=== PATIENT | male | born 1975 | race Caucasian/White ===

== ENCOUNTER 2025-08-08 08:59 | Observation (INO) ==
--- NOTE | 2025-08-08 09:07 | ED.PDOC ---
General [facility] ED Provider: Dr. ESTEPHANIE JOHNSON MD Chief Complaint: Extremity Pain/Injury Stated Complaint: Patient is a 50-year-old male that reported to the emergency department for left lower extremity pain. Patient stated that he was debriding some of the cellulitis on his leg with a clean bandage at home approximately 2 hours prior to coming to the emergency department when he started to get a 10 out of 10 pain in his left lower extremity. Patient stated that he has a long history of cellulitis of the left lower extremity. Patient stated that he was being seen today at wound care but had to come to the emergency department because he had left lower extremity pain. Patient currently rates his pain at 10 out of 10. Patient stated that he is not had any fever, lymphadenopathy, or any other acute symptoms. Patient stated that he has pain whether or not he is moving or touching the lower extremity. Patient stated that he is not taking anything for his pain. Patient denied any recent injuries to his lower extremity. Patient's vital signs are currently stable. Patient's GCS is 15. Time Seen by Provider: 08/08/25 09:01 Mode of Arrival: Wheelchair Information Source: Patient Exam Limitations: No limitations Primary Care Provider: NAN VALADEZ Nursing and Triage Documentation Reviewed and Agree: Yes Opioid Naive vs. Tolerant What is Opioid Naive?: *Opioid Naive implies the patient is not already taking opioids or not chronically receiving opioids on a daily basis. *PRN dosing is not "usually" associated with tolerance. *Patients are at higher risk of over-sedation and aspiration. What is Opioid Tolerant?: *Opioid Tolerance implies less than the expected response to an opioid. *Acquired tolerance is defined by the patient taking 60mg of oral morphine daily (or equianalgesic dose of another opioid) for 1 week or more. *Often associated with chronic pain. *May take more than usual dose to achieve desired pain control. Review of Systems Review Of Systems Constitutional: Reports No symptoms Musculoskeletal: Reports Other (Left leg pain.) All Other Systems: Reviewed and Negative [facility] Medical History Kidney stone N20.0 - Calculus of kidney (ICD-10) Stomach problems K31.9 - Disease of stomach and duodenum, unspecified (ICD-10) Allergies T78.40XA - Allergy, unspecified, initial encounter (ICD-10) Acid reflux K21.9 - Gastro-esophageal reflux disease without esophagitis (ICD-10) Family History Mother Allergies FATHER Heart problem MATERNAL GRANDMOTHER Cancer MATERNAL GRANDFATHER Stroke Social History Smoking and tobacco status: Current every day smoker (pt smokes cigarettes as well as marijuana) Tobacco type: cigarettes Tobacco: How many years used: 26 Quit status: considering quitting Second hand smoke exposure: Yes Alcohol intake: current Alcohol intake frequency: holidays/special occasions only Substance use type: marijuana Rosmery/mandaeism: zoroastrian Special rosmery needs: No Agree to transfusion: Yes Adopted: No Caregiver/support person: Yes Household members: family Housing: house Lives independently: Yes Number of children: 0 Highest education level completed: GED or equivalent Financial difficulty paying for basics: not applicable service: No Current occupational status: unemployed Current occupational exposures/hazards: No Pets and animals: Yes Leisure activites: reading History of recent travel: No Do you think of yourself as: straight/heterosexual Current gender identity: male Seatbelt use: always Helmet use: No Drives intoxicated or rides with intoxicated deliver driver: No Water heater temperature set < 120 degrees: Yes Working smoke detector in home: No (Notified patient to get smoke detector) Fire extinguisher in home: Yes Carbon monoxide detector in home: No Firearms in home: No Physical Exam Physical Exam Appearance: Reports Well-nourished Ill-appearing: None Pain Distress: Moderate Eyes: Reports SUMI and EOMI ENT: Reports Nose normal and Oropharynx normal Neck: Supple Respiratory: Reports Airway patent, Breath sounds clear, Breath sounds equal and Respirations nonlabored Cardiovascular: Reports RRR, Pulses normal, No rub and No murmur GI/: Reports Soft, Nontender and Bowel sounds normal Musculoskeletal: Reports Normal strength, ROM intact and Calf tenderness (Left calf tenderness with warmth and swelling. Homans' sign positive in the left lower extremity.) Skin: Reports Warm, Dry and Other (Patient has stasis dermatitis bilaterally in the lower extremities below the knees. On the left side patient has an area of cellulitis in the left calf. There is no discharge from the cellulitis noted on physical exam.) Neurological: Reports Sensation intact, Motor intact, Alert and Oriented Psychiatric: Reports Affect appropriate and Mood appropriate Physician Progress Note Physician Progress Note: Patient is a 50-year-old male that reported to the emergency department for left lower extremity pain. Patient stated that he was debriding some of the cellulitis on his leg with a clean bandage at home approximately 2 hours prior to coming to the emergency department when he started to get a 10 out of 10 pain in his left lower extremity. Patient stated that he has a long history of cellulitis of the left lower extremity. Patient stated that he was being seen today at wound care but had to come to the emergency department because he had left lower extremity pain. Patient currently rates his pain at 10 out of 10. Patient stated that he is not had any fever, lymphadenopathy, or any other acute symptoms. Patient stated that he has pain whether or not he is moving or touching the lower extremity. Patient stated that he is not taking anything for his pain. Patient denied any recent injuries to his lower extremity. Patient's vital signs are currently stable. Patient's GCS is 15. - Will order CT of the left lower extremity with IV contrast to rule out any deep infection in the left lower extremity. - Due to patient's positive Homans' sign and Wells score of 3 will order ultrasound venous Doppler of the left lower extremity to rule out DVT. - Will give the patient IV morphine 4 mg once for pain and give patient IV ondansetron 4 mg once empirically for nausea due to morphine. -Will give the patient IV vancomycin 1 g for cellulitis of the left lower extremity. - Will order baseline labs and urinalysis. - Will give IV normal saline 125 mL an hour for gentle hydration. - Venous Doppler ultrasound of the left lower extremity shows no DVT. Radiology read the ultrasound out as- No deep venous thrombosis in the left lower extremity. No superficial thrombophlebitis in the left lower extremity. Subcutaneous edema. Repeat evaluation in 5-7 days if edema persists. - CT of the left lower extremity showed Nonspecific diffuse subcutaneous edema throughout the left lower leg with differential including cellulitis, venous stasis or lymphedema. No soft tissue abscess or soft tissue gas. No acute osseous abnormality. - Will contact the hospitalist for admission for cellulitis and the need for IV antibiotics. [id number]) spoke to yesika Willson here at [facility] about admission for this patient. She has agreed to admit this patient for observation for cellulitis and the need for IV antibiotics. Patient's vital signs are stable at time of admission for observation. Discussed radiograph findings and lab findings as well with the hospitalist. Course Course 08/08/25 09:28 08/08/25 09:28 Orders, Labs, Meds: Lab Review 08/08/25 08/08/25 09:28 10:51 WBC 10.51 H RBC 3.25 L Hgb 11.0 L Hct 34.0 L MCV 104.6 H MCH 33.8 H MCHC 32.4 RDW Coeff of Andrey 14.6 Plt Count 276 Immature Gran % (Auto) 0.4 Neut % (Auto) 79.4 H Lymph % (Auto) 10.3 [place] % (Auto) 8.6 Eos % (Auto) 1.1 Baso % (Auto) 0.2 Neut # (Auto) 8.4 H Lymph # (Auto) 1.1 [place] # (Auto) 0.9 Eos # (Auto) 0.1 Baso # (Auto) 0.0 Immature Gran # (Auto) 0.0 Sodium 133.7 L Potassium 4.32 Chloride 100.6 Carbon Dioxide 29.4 Anion Gap 8.02 BUN 18.5 Creatinine 0.94 Estimated GFR (MDRD) 85.00 BUN/Creatinine Ratio 19.68 Glucose 132.2 H Lactic Acid 2.24 H Calcium 9.39 Total Bilirubin 0.47 AST 77.2 H ALT 24.0 Alkaline Phosphatase 86.9 Total Protein 8.25 H Albumin 3.97 Globulin 4.28 Albumin/Globulin Ratio 0.92 Urine Color Yellow Urine Clarity Clear Urine pH 7.5 Ur Specific [place] 1.015 Urine Protein Negative Urine Glucose (UA) Negative Urine Ketones Negative Urine Blood Trace-intact H Urine Nitrite Negative Urine Bilirubin Negative Urine Urobilinogen 0.2 Ur Leukocyte Esterase Negative Ur Squamous Epith Cells Pending Orders Category Date Time Status NPO REMINDER: IMAGING ONCE CARE 08/08/25 09:04 Completed BLOOD CULTURE (ED ONLY) Stat LAB 08/08/25 10:04 Received CBC W/ AUTO DIFF Stat LAB 08/08/25 09:28 Completed CMP [COMPREHENSIVE METABOLIC PANEL] Stat LAB 08/08/25 09:28 Completed LACTIC ACID Stat LAB 08/08/25 09:28 Completed URINALYSIS C & S IF INDICATED Stat LAB 08/08/25 10:51 Results Morphine Sulfate [Morphine 4 mg/ml Syringe] Meds 08/08/25 09:17 Discontinued 4 mg IVP ONCE ONE Ondansetron HCl/Pf [Zofran Sdv] Meds 08/08/25 09:18 Discontinued 4 mg IVP ONCE STA Sodium Chloride 0.9% [Sodium Chloride] 1,000 ml Meds 08/08/25 09:58 Active IV 125 mls/hr Vancomycin/Water For Inj (Peg) [Vancomycin 1 Gram/200 Meds 08/08/25 09:28 Discontinued ml Premix] 1 gm in [address] LOWER EXTRE W/CONT, LEFT Stat RADS 08/08/25 09:04 Completed U/S VENOUS SCAN LT LEG Stat RADS 08/08/25 09:07 Completed Medications Generic Name Dose Route Start Last Admin Trade Name Freq PRN Reason Stop Dose Admin Sodium Chloride 1,000 mls @ 125 mls/hr 08/08/25 09:58 08/08/25 10:26 Sodium Chloride IV 08/08/25 17:57 125 mls/hr .Q8H ONE Administration Discontinued Medications Generic Name Dose Route Start Last Admin Trade Name Freq PRN Reason Stop Dose Admin VANCOMYCIN/WATER FOR INJ (PEG) 1 gm in 200 mls @ 200 mls/hr 08/08/25 09:28 08/08/25 10:26 Vancomycin 1 Gram/200 Ml Premix IV 08/08/25 10:27 200 mls/hr ONCE ONE Administration Morphine Sulfate 4 mg 08/08/25 09:17 08/08/25 09:27 Morphine Sulfate 4 Mg/Ml Syringe IVP 08/08/25 09:18 4 mg ONCE ONE Administration Ondansetron HCl 4 mg 08/08/25 09:18 08/08/25 09:27 Ondansetron Hcl/Pf 4 Mg/2 Ml Sdv IVP 08/08/25 09:19 4 mg ONCE STA Administration Vital Signs: Temp Pulse Resp BP Pulse Ox 08/08/25 09:11 98.7 F 133 H 22 H 155/87 H 100 Discharge Plan Discharge Patient Disposition: PLACED OBSERVATION Discharge Problem: Cellulitis of left leg, Acute bilateral venous stasis dermatitis, Acute pain of left lower extremity, Anemia of chronic disease Did you review [place] [employer] for ALL controlled substances?: Not Applicable ED Provider: ESTEPHANIE JOHNSON Condition: Stable
[2025-08-08] MEDS: ZOFRAN SDV IVP STA (09:27)
[2025-08-08] MEDS: MORPHINE 4 MG/ML SYRINGE IVP ONE (09:27)
[2025-08-08 09:32] LABS: IMMATURE GRANULOCYTE # (AUTO) 0.0 (0.0-1.0); IMMATURE GRANULOCYTE % (AUTO) 0.4 % (0.0-5.0); RDW COEFFICIENT OF VARIATION 14.6 % (11.6-14.8)
[2025-08-08 09:44] LABS: CREATININE 0.94 mg/dL (0.60-1.10)
--- NOTE | 2025-08-08 10:10 | US ---
EXAM: LEFT LOWER EXTREMITY DEEP VENOUS ULTRASOUND WITH DOPPLER IMAGING HISTORY: Rule out DVT. TECHNIQUE: Lopez-scale ultrasound with compression maneuvers and color and spectral Doppler ultrasound at rest and with augmentation of the veins was performed. Images were obtained and stored in a permanent archive. COMPARISON: None FINDINGS: LEFT LOWER EXTREMITY: Common Femoral Vein: Normal compression. Normal flow on color Doppler images. Normal response to augmentation. Deep Femoral Vein: Normal compression. Normal flow on color Doppler images. Normal response to augmentation. Superficial Femoral Vein: Normal compression. Normal flow on color Doppler images. Normal response to augmentation. Popliteal Vein: Normal compression. Normal flow on color Doppler images. Normal response to augmentation. Peroneal Vein: Normal compression. Normal flow on color Doppler images. Posterior Tibial Vein: Normal compression. Normal flow on color Doppler images. Anterior Tibial Vein: Normal compression. Normal flow on color Doppler images. Greater Saphenous Vein (Superficial): Normal compression Other: Subcutaneous edema. IMPRESSION: - No deep venous thrombosis in the left lower extremity. - No superficial thrombophlebitis in the left lower extremity. - Subcutaneous edema. Repeat evaluation in 5-7 days if edema persists.
[2025-08-08] MEDS: SODIUM CHLORIDE 1,000 ML IV ONE (10:26)
[2025-08-08] MEDS: VANCOMYCIN 1 GRAM/200 ML PREMIX 1 GM/200 ML BAG IV ONE ×2 (10:26→13:07)
[2025-08-08 11:01] LABS: GLUCOSE, URINE (UA) Negative (NEGATIVE); LEUKOCYTE ESTERASE ,URINE Negative (NEGATIVE); URINE, BLOOD Trace-intact (NEGATIVE)
[2025-08-08 11:02] LABS: SQUAMOUS EPITHELIAL CELL,UR NOT PRESENT (0-5)
--- NOTE | 2025-08-08 11:03 | CT ---
EXAM: CT LEFT TIBIA AND FIBULA WITH CONTRAST. HISTORY: Soft tissue infection suspected. Left lower leg pain. TECHNIQUE: Helical axial sections were obtained through the left tibia and fibula following the intravenous administration of contrast. Coronal and sagittal reformatted images were obtained from the axial source images. Images were reviewed on a high-resolution PACS workstation. DICOM images are jinny ilable. CT Dose Reduction Techniques Performed: Yes. COMPARISON: None. FINDINGS: Diffuse subcutaneous edema throughout the left lower leg. No rim enhancing fluid collection to suggest an abscess. No soft tissue gas or deep myofascial fluid. No acute fracture or dislocation. No cortical erosion or osseous destruction. No joint effusion at the knee or ankle. Mild degenerative changes. IMPRESSION: - Nonspecific diffuse subcutaneous edema throughout the left lower leg with differential including cellulitis, venous stasis or lymphedema. No soft tissue abscess or soft tissue gas. - No acute osseous abnormality. All CT scans are performed using dose optimization techniques as appropriate to the performed exam and include at least one of the following: Automated exposure control, adjustment of the mA and/or kV according to size, and the use of iterative reconstruction technique.
[2025-08-08 11:06] LABS: HYALINE CASTS, URINE 0-2 (NOT PRESENT); TRIPLE PHOSPHATE CRYSTAL,UR TRACE (NOT PRESENT)
--- NOTE | 2025-08-08 11:09 | PCM ---
Date of Service Date Seen by Provider: 08/08/25 Time Seen by Provider: 11:30 Admit Day/Time Admission Date: 08/08/25 Admission Time: 11:06 Reason for Admission Chief Complaint: ACUTE BILAT. VEIN. STASIS DERM., CELLULITIS LFT Hospital Provider Hospital Provider: Nathan Gasca PA-C, [facility] Primary Care Physician Primary Care Physician: ANN VALADEZ History of Present Illness History of Present Illness: Patient is a 50 year old male who presents to the ER with left lower ext pain. Rahat has been following wound care for his lower extremities and was there today. They brought him over due to his significant pain in LLE. Patient's venous US r/o DVT, ct of left lower ext negative for abscess but shows edema and possible cellulitis. Patient was recently prescribed clindamycin but has missed some doses. Wound cultures from about a year ago show MRSA. Patient is feeling better after some IV pain medication. He is sleepy. He was also given vanc IV. Will admit to [facility] for cellulitis of left lower ext. Patient states he had recent testing done at [facility] including an CARSON in last couple dyas, and that having the cuff down around his wound has made his pain worse since then. Case Discussed With Case Discussed With: Patient's case was discussed with the ER Physicians, Dr. Webber. [facility] Medical History Kidney stone N20.0 - Calculus of kidney (ICD-10) Stomach problems K31.9 - Disease of stomach and duodenum, unspecified (ICD-10) Allergies T78.40XA - Allergy, unspecified, initial encounter (ICD-10) Acid reflux K21.9 - Gastro-esophageal reflux disease without esophagitis (ICD-10) Family History Mother Allergies FATHER Heart problem MATERNAL GRANDMOTHER Cancer MATERNAL GRANDFATHER Stroke Social History Smoking and tobacco status: Current every day smoker (pt smokes cigarettes as well as marijuana) Tobacco type: cigarettes Tobacco: How many years used: 26 Quit status: considering quitting Second hand smoke exposure: Yes Alcohol intake: current Alcohol intake frequency: holidays/special occasions only Substance use type: marijuana Rosmery/baptist: scientologist Special rosmery needs: No Agree to transfusion: Yes Adopted: No Caregiver/support person: Yes Household members: family Housing: house Lives independently: Yes Number of children: 0 Highest education level completed: GED or equivalent Financial difficulty paying for basics: not applicable service: No Current occupational status: unemployed Current occupational exposures/hazards: No Pets and animals: Yes Leisure activites: reading History of recent travel: No Do you think of yourself as: straight/heterosexual Current gender identity: male Seatbelt use: always Helmet use: No Drives intoxicated or rides with intoxicated package delivery driver: No Water heater temperature set < 120 degrees: Yes Working smoke detector in home: No (Notified patient to get smoke detector) Fire extinguisher in home: Yes Carbon monoxide detector in home: No Firearms in home: No Allergies Allergies Allergy/AdvReac Type Severity Reaction Status Date / Time mold Allergy Mild headache, Verified 08/08/25 09:22 nasal congestion pollen extracts Allergy Mild headache, Verified 08/08/25 09:22 nasal congestion codeine AdvReac nausea Verified 08/08/25 09:22 Current Medications Home Medications Acetaminophen (Acetaminophen 325 Mg Tablet) 650 mg PO Q4H PRN PRN Reason: Mild Pain Last Admin: 08/08/25 13:12 Dose: 650 mg Aripiprazole (Aripiprazole 5 Mg Tablet) 10 mg PO DAILY [facility] Budesonide/Formoterol Fumarate (Budesonide/Formoterol Fumarate 80/4.5 Mcg Hfa.Aer.Ad) puff IH .nightly [facility] Enoxaparin Sodium (Enoxaparin Sodium 40 Mg/0.4 Ml Syr) 40 mg SUBCUT DAILY [facility] Sodium Chloride (Sodium Chloride) 1,000 mls @ 125 mls/hr IV .Q8H ONE Stop: 08/08/25 17:57 Last Admin: 08/08/25 10:26 Dose: 125 mls/hr VANCOMYCIN/WATER FOR INJ (PEG) (Vancomycin 1.5 Gram/300 Ml Premix) 1.5 gm in 300 mls @ 200 mls/hr IV Q12HR MIRYAM Stop: 08/11/25 20:59 Ibuprofen (Ibuprofen 400 Mg Tablet) 800 mg PO Q6H PRN PRN Reason: FEVER/PAIN Morphine Sulfate (Morphine Sulfate 2 Mg/Ml Syringe) 2 mg IVP Q6H PRN PRN Reason: MODERATE PAIN aripiprazole 10 mg tablet 10 mg PO DAILY 05/14/25 [History Confirmed 08/08/25] albuterol sulfate 90 mcg/actuation aerosol inhaler 2 puff inhalation Q6-8H PRN shortness of breath or wheezing 08/08/25 [History Confirmed 08/08/25] budesonide-formoterol HFA 80 mcg-4.5 mcg/actuation aerosol inhaler (Symbicort) 1 inh inhalation .nightly 08/08/25 [History Confirmed 08/08/25] clindamycin HCl 300 mg capsule 300 mg PO Q6HR 08/08/25 [History Confirmed 08/08/25] diclofenac sodium 75 mg tablet,delayed release 75 mg PO DAILY 08/08/25 [History Confirmed 08/08/25] loratadine 10 mg tablet (Allergy Relief (loratadine)) 10 mg PO DAILY PRN allergy symptoms 08/08/25 [History Confirmed 08/08/25] topiramate 50 mg tablet 50 mg PO DAILY PRN migraines 08/08/25 [History Confirmed 08/08/25] Opioid Naive vs. Tolerant Does Patient Take Opioids?: No Is Patient Opioid Naive?: Yes What is Opioid Naive?: *Opioid Naive implies the patient is not already taking opioids or not chronically receiving opioids on a daily basis. *PRN dosing is not "usually" associated with tolerance. *Patients are at higher risk of over-sedation and aspiration. Is Patient Opioid Tolerant?: No What is Opioid Tolerant?: *Opioid Tolerance implies less than the expected response to an opioid. *Acquired tolerance is defined by the patient taking 60mg of oral morphine daily (or equianalgesic dose of another opioid) for 1 week or more. *Often associated with chronic pain. *May take more than usual dose to achieve desired pain control. Review of Systems Constitutional: Denies Fever Head: Reports Normocephalic and Atraumatic Cardiovascular: Denies Chest pain Respiratory: Denies Shortness of air Musculoskeletal: Reports Other (+LLE pain ) Physical examination Most Recent Vital Signs: Most Recent Vital Signs Temperature 98.7 F 08/08/25 09:11 Temperature Source Tympanic 08/08/25 09:11 Pulse Rate 133 H 08/08/25 09:11 Respiratory Rate 22 H 10/16/25 09:11 Blood Pressure 155/87 H 08/08/25 09:11 O2 Sat by Pulse Oximetry 100 08/08/25 09:11 Height 6 ft 1 in 08/08/25 09:11 Weight 108 kg 08/08/25 09:11 Appearance: Positive No Apparent Distress and Other (+sedated from pain medication but wakes when spoken to, disheveled ) HEENT: Positive Normocephalic and Atraumatic Neck: Positive Supple and Midline Trachea Chest/Lungs: Positive Clear to Auscultation Bilaterally; Negative Rales, Rhonci or Wheezes Heart: Positive RRR GI/: Positive Soft, Nontender, Bowel Sounds Normal and No Distention Additional Findings: BLE - chronic skin changes consistent with venous stasis dermatitis. There is a large irregularly shaped ulceration of the left lateral lower ext that appears chronic, weeping, with some erythema Labs This Visit Labs This Visit: Labs This Visit 08/08/25 08/08/25 09:28 10:51 WBC 10.51 H RBC 3.25 L Hgb 11.0 L Hct 34.0 L MCV 104.6 H MCH 33.8 H MCHC 32.4 RDW Coeff of Andrey 14.6 Plt Count 276 Immature Gran % (Auto) 0.4 Neut % (Auto) 79.4 H Lymph % (Auto) 10.3 [place] % (Auto) 8.6 Eos % (Auto) 1.1 Baso % (Auto) 0.2 Neut # (Auto) 8.4 H Lymph # (Auto) 1.1 [place] # (Auto) 0.9 Eos # (Auto) 0.1 Baso # (Auto) 0.0 Immature Gran # (Auto) 0.0 Sodium 133.7 L Potassium 4.32 Chloride 100.6 Carbon Dioxide 29.4 Anion Gap 8.02 BUN 18.5 Creatinine 0.94 Estimated GFR (MDRD) 85.00 BUN/Creatinine Ratio 19.68 Glucose 132.2 H Lactic Acid 2.24 H Calcium 9.39 Total Bilirubin 0.47 AST 77.2 H ALT 24.0 Alkaline Phosphatase 86.9 Total Protein 8.25 H Albumin 3.97 Globulin 4.28 Albumin/Globulin Ratio 0.92 Urine Color Yellow Urine Clarity Clear Urine pH 7.5 Ur Specific [place] 1.015 Urine Protein Negative Urine Glucose (UA) Negative Urine Ketones Negative Urine Blood Trace-intact H Urine Nitrite Negative Urine Bilirubin Negative Urine Urobilinogen 0.2 Ur Leukocyte Esterase Negative Urine Microscopic RBC 2-5 Ur Squamous Epith Cells Not present Triple Phos Crystals Trace Hyaline Casts 0-2 Imaging Imaging: EXAM: CT LEFT TIBIA AND FIBULA WITH CONTRAST. HISTORY: Soft tissue infection suspected. Left lower leg pain. TECHNIQUE: Helical axial sections were obtained through the left tibia and fibula following the intravenous administration of contrast. Coronal and sagittal reformatted images were obtained from the axial source images. Images were reviewed on a high-resolution PACS workstation. DICOM images are available. CT Dose Reduction Techniques Performed: Yes. COMPARISON: None. FINDINGS: Diffuse subcutaneous edema throughout the left lower leg. No rim enhancing fluid collection to suggest an abscess. No soft tissue gas or deep myofascial fluid. No acute fracture or dislocation. No cortical erosion or osseous destruction. No joint effusion at the knee or ankle. Mild degenerative changes. IMPRESSION: - Nonspecific diffuse subcutaneous edema throughout the left lower leg with differential including cellulitis, venous stasis or lymphedema. No soft tissue abscess or soft tissue gas. - No acute osseous abnormality. EXAM: LEFT LOWER EXTREMITY DEEP VENOUS ULTRASOUND WITH DOPPLER IMAGING HISTORY: Rule out DVT. TECHNIQUE: Lopez-scale ultrasound with compression maneuvers and color and spectral Doppler ultrasound at rest and with augmentation of the veins was perf ormed. Images were obtained and stored in a permanent archive. COMPARISON: None FINDINGS: LEFT LOWER EXTREMITY: Common Femoral Vein: Normal compression. Normal flow on color Doppler images. Normal response to augmentation. Deep Femoral Vein: Normal compression. Normal flow on color Doppler images. Normal response to augmentation. Superficial Femoral Vein: Normal compression. Normal flow on color Doppler images. Normal response to augmentation. Popliteal Vein: Normal compression. Normal flow on color Doppler images. Normal response to augmentation. Peroneal Vein: Normal compression. Normal flow on color Doppler images. Posterior Tibial Vein: Normal compression. Normal flow on color Doppler images. Anterior Tibial Vein: Normal compression. Normal flow on color Doppler i mages. Greater Saphenous Vein (Superficial): Normal compression Other: Subcutaneous edema. IMPRESSION: - No deep venous thrombosis in the left lower extremity. - No superficial thrombophlebitis in the left lower extremity. - Subcutaneous edema. Repeat evaluation in 5-7 days if edema persists. Review Statement Review Statement: I have independently reviewed and interpreted the labs/EKGs/imaging that were ordered by the ER provider. I have reviewed all outside records that are available currently in our EMR including imaging/notes/labs from previous visits. Plan Plan: 1. Acute cellulitis of left lower extremity - failed outpatient antibiotics. Pt taking clindamycin. Will cover for vanc at this time. No discernable wound to culture as his entire left lateral lower ext is an ulceration but without purulent drainage. 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 2. Venous stasis dermatitis of BLE - Patient follows with vascular surgery at [facility], last seen in June. 3. Large ulceration of left lower ext - Seeing wound care here in [place], will try to get some records from them. Reviewing pictures from his vascular visit last month, his LLE actually appears improved as far as the ulceration goes. However during admission assessment, patient noted to be running a 102F fever. DVT Prophylaxis: Lovenox Time Spent: Greater than 80 minutes spent with patient, 50% of the time spent with this patient was devoted to counseling and coordination of care. Advanced Care Plannin minutes spent discussing advance care planning. Smoking Cessation: 3 minutes spent discussing smoking cessation. Admit to: Obs Discussed Plan of Care with Dr. Ana Younger. Medications Medication Orders: Medications Ordered Category Date Time Status Sodium Chloride 0.9% [Sodium Chloride] 1,000 ml Meds 08/08/25 09:58 Active IV 125 mls/hr
[2025-08-08] MEDS ORDERED: MORPHINE 2 MG/ML SYRINGE IVP PRN (12:01)
[2025-08-08 13:05] VITALS: BMI 31.5
[2025-08-08] MEDS: TYLENOL PO PRN (13:12)
[2025-08-08] MEDS: MOTRIN PO PRN (15:03)
[2025-08-08] MEDS: ABILIFY PO SCH (15:04)
[2025-08-08] MEDS: OMNIPAQUE 350 MG/ML 100ML IVP ONE (15:50)
[2025-08-08] MEDS: OMNIPAQUE 350 MG/ML IVP ONE (15:50)
[2025-08-08] MEDS: VANCOMYCIN 1.5 GRAM/300 ML PREMIX 1.5 GM/300 ML BAG IV SCH (21:02)
[2025-08-08] MEDS: SYMBICORT 80-4.5 MCG INHALER IH SCH (21:02)
[2025-08-09 05:36] LABS: IMMATURE GRANULOCYTE # (AUTO) 0.0 (0.0-1.0); IMMATURE GRANULOCYTE % (AUTO) 0.3 % (0.0-5.0); RDW COEFFICIENT OF VARIATION 14.9 % (11.6-14.8)
[2025-08-09 05:47] LABS: CREATININE 0.77 mg/dL (0.60-1.10)
[2025-08-09] MEDS: LOVENOX SUBCUT SCH (08:08)
[2025-08-09] MEDS: SODIUM CHLORIDE PO SCH (10:03)
[2025-08-09] MEDS: SODIUM CHLORIDE 1,000 ML IV SCH (10:03)
[2025-08-09 14:43] LABS: CREATININE 0.94 mg/dL (0.60-1.10)
[2025-08-09 14:53] VITALS: BP 132/65; PULSE 94; RESP 16; TEMP 98
--- NOTE | 2025-08-09 14:59 | DCSUM ---
Admission Date Admission Date: 08/08/25 Discharge Date Discharge Date: 08/09/25 Admission Diagnosis Admission Diagnosis: 1. Acute cellulitis of left lower extremity Discharge Diagnosis Discharge Diagnosis: 1. Acute cellulitis of left lower extremity 2. Venous stasis dermatitis of BLE 3. Large ulceration of left lower ext, improving 4. Hyponatremia, mild Hospital Provider Hospital Provider: NATHAN GASCA PA-C, [facility] Primary Care Physician Primary Care Physician: ANN VALADEZ Summary of History and Physical Summary of History and Physical: Patient is a 50 year old male who presents to the ER with left lower ext pain. Rahat has been following wound care for his lower extremities and was there today. They brought him over due to his significant pain in LLE. Patient's venous US r/o DVT, ct of left lower ext negative for abscess but shows edema and possible cellulitis. Patient was recently prescribed clindamycin but has missed some doses. Wound cultures from about a year ago show MRSA. Patient is feeling better after some IV pain medication. He is sleepy. He was also given vanc IV. Will admit to [facility] for cellulitis of left lower ext. Patient states he had recent testing done at [facility] including an CARSON in last couple dyas, and that having the cuff down around his wound has made his pain worse si nce then. Hospital Course Subjective: Patient had no discernable wound to culture. No purulent drainage. He did have a fever upon admission but then did not have one for next 24 hours. Treated with vanc. Reviewing past photos at vascular at [facility] in June, left lateral leg is improving. His pain improved greatly. Day of discharge, sodium noted to be mildly low. He states this has happened in the past before. Will send home on some sodium tabs with recheck by pcp next week. Patient is agreeable to plan of care. Stop clinda, start doxy, f/u with outpatient providers. Tried to reschedule with wound care but they said they could no longer see him due to multiple missed appointments unfortunately. Appearance: Pleasant, No Apparent Distress and Alert HEENT: MMM CVS: Other (RRR) Abdomen: Soft, Non-Tender and No Distention Respiratory: No Accessory Muscle Use Additional Findings: BLE - chronic venous stasis dermatitis, left lateral leg with large ulceration that appears to be improving compared to past photos. Mild amount of seeping fluid but no purulent drainage to culture. Vital Signs: Most Recent Vital Signs Temperature 98.0 F 08/09/25 14:00 Temperature Source Oral 08/09/25 14:00 Temperature Source Tympanic 08/08/25 09:11 Pulse Rate 94 08/09/25 14:00 Respiratory Rate 16 08/09/25 14:00 Blood Pressure 132/65 08/09/25 14:00 Blood Pressure Mean 87 08/09/25 14:00 Blood Pressure Right Arm 125/65 08/08/25 12:33 Blood Pressure Location Left Arm 08/09/25 14:00 Blood Pressure Position Supine 08/09/25 05:35 O2 Sat by Pulse Oximetry 95 08/09/25 14:00 Oxygen Delivery Method Room Air 08/09/25 14:00 Height 6 ft 1 in 08/08/25 12:33 Weight 108.3 kg 08/08/25 12:33 Imaging: EXAM: CT LEFT TIBIA AND FIBULA WITH CONTRAST. HISTORY: Soft tissue infection suspected. Left lower leg pain. TECHNIQUE: Helical axial sections were obtained through the left tibia and fibula following the intravenous administration of contrast. Coronal and sagittal reformatted images were obtained from the axial source images. Images were reviewed on a high-resolution PACS workstation. DICOM images are available. CT Dose Reduction Techniques Performed: Yes. COMPARISON: None. FINDINGS: Diffuse subcutaneous edema throughout the left lower leg. No rim enhancing fluid collection to suggest an abscess. No soft tissue gas or deep myofascial fluid. No acute fracture or dislocation. No cortical erosion or osseous destruction. No joint effusion at the knee or ankle. Mild degenerative changes. IMPRESSION: - Nonspecific diffuse subcutaneous edema throughout the left lower leg with differential including cellulitis, venous stasis or lymphedema. No soft tissue abscess or soft tissue gas. - No acute osseous abnormality. EXAM: LEFT LOWER EXTREMITY DEEP VENOUS ULTRASOUND WITH DOPPLER IMAGING HISTORY: Rule out DVT. TECHNIQUE: Lopez-scale ultrasound with compression maneuvers and color and spectral Doppler ultrasound at rest and with augmentation of the veins was performed. Images were obtained and stored in a permanent archive. COMPARISON: None FINDINGS: LEFT LOWER EXTREMITY: Common Femoral Vein: Normal compression. Normal flow on color Doppler images. Normal response to augmentation. Deep Femoral Vein: Normal compression. Normal flow on color Doppler images. Normal response to augmentation. Superficial Femoral Vein: Normal compression. Normal flow on color Doppler images. Normal response to augmentation. Popliteal Vein: Normal compression. Normal flow on color Doppler images. Normal response to augmentation. Peroneal Vein: Normal compression. Normal flow on color Doppler images. Posterior Tibial Vein: Normal compression. Normal flow on color Doppler images. Anterior Tibial Vein: Normal compression. Normal flow on color Doppler images . Greater Saphenous Vein (Superficial): Normal compression Other: Subcutaneous edema. IMPRESSION: - No deep venous thrombosis in the left lower extremity. - No superficial thrombophlebitis in the left lower extremity. - Subcutaneous edema. Repeat evaluation in 5-7 days if edema persists. Lab Results Last 24 Hours: 08/09/25 08/09/25 14:27 05:13 WBC 6.09 RBC 3.18 L Hgb 10.6 L Hct 33.6 L MCV 105.7 H MCH 33.3 H MCHC 31.5 L RDW Coeff of Andrey 14.9 H Plt Count 268 Immature Gran % (Auto) 0.3 Neut % (Auto) 74.8 Lymph % (Auto) 14.3 [place] % (Auto) 9.4 Eos % (Auto) 1.0 Baso % (Auto) 0.2 Neut # (Auto) 4.6 Lymph # (Auto) 0.9 [place] # (Auto) 0.6 Eos # (Auto) 0.1 Baso # (Auto) 0.0 Immature Gran # (Auto) 0.0 Sodium 130.6 L 129.7 L Potassium 4.20 4.49 Chloride 101.8 105.0 Carbon Dioxide 27.3 21.8 L D Anion Gap 5.70 7.39 BUN 13.3 14.3 Creatinine 0.94 0.77 Estimated GFR (MDRD) 85.00 107.00 BUN/Creatinine Ratio 14.14 18.57 Glucose 110.4 H 103.9 Calcium 8.60 8.72 Total Bilirubin 0.49 AST 45.0 D ALT 22.4 Alkaline Phosphatase 76.3 Total Protein 7.08 Albumin 3.29 L Globulin 3.79 Albumin/Globulin Ratio 0.86 Discharge Instructions Discharge Planning: Discharge Planning > [address] Ana Younger. Discharge Medications: Medications at Discharge (Home Meds & RX) aripiprazole 10 mg tablet 10 mg PO DAILY 05/14/25 albuterol sulfate 90 mcg/actuation aerosol inhaler 2 puff inhalation Q6-8H PRN shortness of breath or wheezing 08/08/25 budesonide-formoterol HFA 80 mcg-4.5 mcg/actuation aerosol inhaler (Symbicort) 2 inh inhalation BID 08/08/25 diclofenac sodium 75 mg tablet,delayed release 75 mg PO DAILY 08/08/25 loratadine 10 mg tablet (Allergy Relief (loratadine)) 10 mg PO DAILY PRN allergy symptoms 08/08/25 topiramate 50 mg tablet 50 mg PO DAILY PRN migraines 08/08/25 doxycycline monohydrate 100 mg capsule 100 mg PO BID 6 days #12 caps 08/09/25 sodium chloride 1,000 mg soluble tablet 1,000 mg PO TID 5 days #15 tabs 08/09/25 Discharge Plan Discharge Discharge Orders: Discharge Patient (ONCE); Ordered 08/09/25 Ordered By: NATHAN GASCA Activity Restrictions/Additional Instructions: DISCHARGE TO HOME DX: CELLULITIS PHARMACY: [facility] STOP CLINDA, START DOXY F/U WITH PCP AND VASCULAR SALT TABS ORDERED, FOLLOW UP WITH PCP FOR REPEAT BLOODWORK RECOMMEND PROBIOTIC (OVER THE COUNTER) DUE TO ANTIBIOTIC USE Instructions: Cellulitis (ED), Pain Management (ED), Leg Pain (ED) Care Plan Goals: Problem: Fluid and electrolyte imbalance Goal: Maintain fluid and electrolyte balance Instructions: Monitor I/O as needed Obtain labs related to electrolytes Problem: Alteration in Comfort/Pain Goal: Manage pain at a tolerable level Instructions: Monitor character, location and intensity Express expectations of pain relief Pain medication as ordered Position for maximal comfort Pain management prior to activities Patient Disposition: HOME SELF-CARE Prescriptions: New sodium chloride 1,000 mg Tablet,Soluble 1,000 mg PO TID 5 Days Qty: 15 0RF doxycycline monohydrate 100 mg capsule 100 mg PO BID 6 Days Qty: 12 0RF Continued aripiprazole 10 mg tablet 10 mg PO DAILY diclofenac sodium 75 mg tablet,delayed release (DR/EC) 75 mg PO DAILY loratadine [Allergy Relief (loratadine)] 10 mg tablet 10 mg PO DAILY PRN (Reason: allergy symptoms) topiramate 50 mg tablet 50 mg PO DAILY PRN (Reason: migraines) albuterol sulfate 90 mcg/actuation HFA aerosol inhaler 2 puff inhalation Q6-8H PRN (Reason: shortness of breath or wheezing) budesonide-formoterol [Symbicort] 80-4.5 mcg/actuation HFA aerosol inhaler 2 inh inhalation BID Discontinued clindamycin HCl 300 mg capsule 300 mg PO Q6HR Patient Comments: Should be completed, but pt missed some doses and states he is still taking 08/08/2025 Did you review [place] [employer]ER for ALL controlled substances?: Not Applicable Discussed opioids are addictive and Narcan is available by prescription or from pharmacy.: No Condition: Stable Referrals: ANN VALADEZ [Primary Care Provider, MORTGAGE PROFESSIONAL] - 08/14/25 3:45 pm
== END 2025-08-09 15:55 | disposition home or self-care (01) ==
LOC: ED 08:59 → MEDSURG B 08:59
PROVIDERS: ADMIT Hospitalist; ATTEND Physician Assistant
DX: L03.116 Cellulitis of left lower limb; D64.9 Anemia, unspecified; E87.1 Hypo-osmolality and hyponatremia; Z51.81 Encounter for therapeutic drug level monitoring; Z16.29 Resistance to other single specified antibiotic; I87.312 Chronic venous hypertension (idiopathic) with ulcer of left lower extremity; L97.929 Non-pressure chronic ulcer of unspecified part of left lower leg with unspecified severity; Z79.899 Other long term (current) drug therapy; M79.662 Pain in left lower leg; I87.2 Venous insufficiency (chronic) (peripheral)

== ENCOUNTER 2025-09-17 12:10 | Observation (INO) ==
--- NOTE | 2025-09-17 12:14 | ED.PDOC ---
General [facility] ED Provider: Dr. ESTEPHANIE JOHNSON MD Chief Complaint: Extremity Swelling/Pain Stated Complaint: Patient is a 50-year-old male that reported to the emergency department via EMS for cellulitis of the lower extremities bilaterally. Patient initially went to [facility] his primary care provider to get p.o. antibiotics. [facility] thought that his cellulitis was too advanced and needed IV antibiotics so they sent him to the emergency department. Patient stated that his left lower extremity cellulitis has been worse than his right for the past week. Patient stated that he has not taken anything for his cellulitis. Patient has been seen for this previously. Patient is noncompliant with his treatment plans. Patient was seen by vascular surgery in June. Patient was also seen by wound care for his lower extremity stasis dermatitis with cellulitis and subsequently discharged due to noncompliance and not showing up for his appointments. In the emergency department patient denies any fever, lymphadenopathy, shortness of breath, chest pain, or any other acute symptoms not currently mentioned in [facility]. Patient's vital signs are currently stable. Patient's GCS is 15. Time Seen by Provider: 09/17/25 12:13 Mode of Arrival: Ambulance Information Source: Patient and EMT Exam Limitations: No limitations Primary Care Provider: ANN VALADEZ Nursing and Triage Documentation Reviewed and Agree: Yes Opioid Naive vs. Tolerant What is Opioid Naive?: *Opioid Naive implies the patient is not already taking opioids or not chronically receiving opioids on a daily basis. *PRN dosing is not "usually" associated with tolerance. *Patients are at higher risk of over-sedation and aspiration. What is Opioid Tolerant?: *Opioid Tolerance implies less than the expected response to an opioid. *Acquired tolerance is defined by the patient taking 60mg of oral morphine daily (or equianalgesic dose of another opioid) for 1 week or more. *Often associated with chronic pain. *May take more than usual dose to achieve desired pain control. Review of Systems Review Of Systems Constitutional: Reports No symptoms Skin: Reports Other (Cellulitis of the legs bilaterally) All Other Systems: Reviewed and Negative [facility] Medical History Kidney stone N20.0 - Calculus of kidney (ICD-10) Stomach problems K31.9 - Disease of stomach and duodenum, unspecified (ICD-10) Allergies T78.40XA - Allergy, unspecified, initial encounter (ICD-10) Acid reflux K21.9 - Gastro-esophageal reflux disease without esophagitis (ICD-10) Family History Mother Allergies FATHER Heart problem MATERNAL GRANDMOTHER Cancer MATERNAL GRANDFATHER Stroke Social History Smoking and tobacco status: Current every day smoker (pt smokes cigarettes as well as marijuana) Tobacco type: cigarettes Tobacco: How many years used: 26 Quit status: considering quitting Second hand smoke exposure: Yes Alcohol intake: current Alcohol intake frequency: holidays/special occasions only Substance use type: marijuana Rosmery/pentecostal: jainism Special rosmery needs: No Agree to transfusion: Yes Adopted: No Caregiver/support person: Yes Household members: family Housing: house Lives independently: Yes Number of children: 0 Highest education level completed: GED or equivalent Financial difficulty paying for basics: not applicable service: No Current occupational status: unemployed Current occupational exposures/hazards: No Pets and animals: Yes Leisure activites: reading History of recent travel: No Do you think of yourself as: straight/heterosexual Current gender identity: male Seatbelt use: always Helmet use: No Drives intoxicated or rides with intoxicated goat driver: No Water heater temperature set < 120 degrees: Yes Working smoke detector in home: No (Notified patient to get smoke detector) Fire extinguisher in home: Yes Carbon monoxide detector in home: No Firearms in home: No Physical Exam Physical Exam Appearance: Reports Well-nourished Ill-appearing: None Pain Distress: Moderate Eyes: Reports SUMI and EOMI ENT: Reports Nose normal and Oropharynx normal Neck: Supple Respiratory: Reports Airway patent, Breath sounds clear, Breath sounds equal and Respirations nonlabored Cardiovascular: Reports RRR, Pulses normal, No rub and No murmur GI/: Reports Soft, Nontender and Bowel sounds normal Musculoskeletal: Reports Normal strength and ROM intact Skin: Reports Warm, Dry and Other (Patient has stasis dermatitis bilaterally in the lower extremities below the knees. On the left side patient has an area of cellulitis on the left mabry approximately 8 cm wide by 5 cm long. There is clear/yellowish discharge from the cellulitis to the left lower extremity. ) Neurological: Reports Sensation intact, Motor intact, Alert and Oriented Psychiatric: Reports Affect appropriate and Mood appropriate Physician Progress Note Physician Progress Note: Patient is a 50-year-old male that reported to the emergency department via EMS for cellulitis of the lower extremities bilaterally. Patient initially went to [facility] his primary care provider to get p.o. antibiotics. [facility] thought that his cellulitis was too advanced and needed IV antibiotics so they sent him to the emergency department. Patient stated that his left lower extremity cellulitis has been worse than his right for the past week. Patient stated that he has not taken anything for his cellulitis. Patient has been seen for this previously. Patient is noncompliant with his treatment plans. Patient was seen by vascular surgery in June. Patient was also seen by wound care for his lower extremity stasis dermatitis with cellulitis and subsequently discharged due to noncompliance and not showing up for his appointments. In the emergency department patient denies any fever, lymphadenopathy, shortness of breath, chest pain, or any other acute symptoms not currently mentioned in HPI. Patient's vital signs are currently stable. Patient's GCS is 15. - Patient has cellulitis of the left lower extremity and bilateral stasis dermatitis. - Will order IV vancomycin 1.5 g for patient's cellulitis of the left lower extremity. - Will order baseline labs. - Patient's labs were unremarkable. -([id number]) spoke to hospitalistNathan about this patient and cellulitis and the need for IV antibiotics. She stated that she was going to come see the patient at bedside and give a determination on whether we should admit this patient for observation. Patient's vital signs are stable at time of conversation with Nathan. -([phone]) spoke to hospitalistNathan at bedside who agrees patient should come into the hospital for IV antibiotics at this time. She is also requested that I order Doppler of the left lower extremity to rule out blood clot and she stated that she would follow it up once on the floor. Patient's vital signs are stable at time of acceptance for admission. Course Course 09/17/25 12:22 09/17/25 12:22 Orders, Labs, Meds: Lab Review 09/17/25 12:22 WBC 6.05 RBC 3.77 L Hgb 12.3 L Hct 38.9 L MCV 103.2 H MCH 32.6 H MCHC 31.6 L RDW Coeff of Andrey 13.4 Plt Count 296 Immature Gran % (Auto) 0.2 Neut % (Auto) 65.9 Lymph % (Auto) 22.6 [place] % (Auto) 9.4 Eos % (Auto) 1.7 Baso % (Auto) 0.2 Neut # (Auto) 4.0 Lymph # (Auto) 1.4 [place] # (Auto) 0.6 Eos # (Auto) 0.1 Baso # (Auto) 0.0 Immature Gran # (Auto) 0.0 Sodium 134.9 Potassium 4.34 Chloride 99.3 Carbon Dioxide 28.2 Anion Gap 11.74 BUN 17.1 Creatinine 0.97 Estimated GFR (MDRD) 82.00 BUN/Creatinine Ratio 17.62 Glucose 98.9 Calcium 9.69 Total Bilirubin 0.66 AST 57.7 ALT 21.1 Alkaline Phosphatase 83.8 Total Protein 9.24 H Albumin 4.18 Globulin 5.06 Albumin/Globulin Ratio 0.82 Orders Category Date Time Status CBC W/ AUTO DIFF Stat LAB 09/17/25 12:22 Completed CMP [COMPREHENSIVE METABOLIC PANEL] Stat LAB 09/17/25 12:22 Completed URINALYSIS C & S IF INDICATED Stat LAB 09/17/25 12:16 Uncollected Vancomycin/Water For Inj (Peg) [Vancomycin 1.5 Gram/300 Meds 09/17/25 12:19 Active ml Premix] 1.5 gm in 300 ml IV ONCE US VENOUS SCAN LT LEG [U/S VENOUS SCAN LT LEG] Stat RADS 09/17/25 13:15 Ordered Medications Generic Name Dose Route Start Last Admin Trade Name Freq PRN Reason Stop Dose Admin VANCOMYCIN/WATER FOR INJ (PEG) 1.5 gm in 300 mls @ 200 mls/hr 09/17/25 12:19 09/17/25 12:50 Vancomycin 1.5 Gram/300 Ml Premix IV 09/17/25 13:48 200 mls/hr ONCE ONE Administration Vital Signs: Temp Pulse Resp BP Pulse Ox 09/17/25 12:12 98.4 F 91 18 126/69 100 Discharge Plan Discharge Patient Disposition: PLACED OBSERVATION Discharge Problem: Cellulitis of left lower leg, Stasis dermatitis of both legs Did you review [place] RECYCLING OPERATIONS MANAGER for ALL controlled substances?: Not Applicable ED Provider: ESTEPHANIE JOHNSON Condition: Stable
[2025-09-17 12:26] LABS: IMMATURE GRANULOCYTE # (AUTO) 0.0 (0.0-1.0); IMMATURE GRANULOCYTE % (AUTO) 0.2 % (0.0-5.0); RDW COEFFICIENT OF VARIATION 13.4 % (11.6-14.8)
[2025-09-17 12:39] LABS: CREATININE 0.97 mg/dL (0.60-1.10)
[2025-09-17] MEDS: VANCOMYCIN 1.5 GRAM/300 ML PREMIX 1.5 GM/300 ML BAG IV ONE (12:50)
--- NOTE | 2025-09-17 14:09 | US ---
EXAM: LEFT LOWER EXTREMITY DEEP VENOUS ULTRASOUND WITH DOPPLER IMAGING HISTORY: Left calf swelling. TECHNIQUE: Lopez-scale ultrasound with compression maneuvers and color and spectral Doppler ultrasound at rest and with augmentation of the veins was performed. Images were obtained and stored in a permanent archive. COMPARISON: Venous study of 08/08/2025. FINDINGS: LEFT LOWER EXTREMITY: Common Femoral Vein: Normal compression. Normal flow on color Doppler images. Normal response to augmentation. Deep Femoral Vein: Normal compression. Normal flow on color Doppler images. Normal response to augmentation. Femoral Vein: Normal compression. Normal flow on color Doppler images. Normal response to augmentation. Popliteal Vein: Normal compression. Normal flow on color Doppler images. Normal response to augmentation. Peroneal Vein: Normal compression. Normal flow on color Doppler images. Posterior Tibial Vein: Normal compression. Normal flow on color Doppler images. Anterior Tibial Vein: Normal compression. Normal flow on color Doppler images. Greater Saphenous Vein (Superficial): Normal compression. Normal flow on color Doppler images. Other: There is subcutaneous edema below the knee. IMPRESSION: 1. No deep venous thrombosis (DVT) in the left lower extremity. 2. No superficial venous thrombosis (SVT) in the left lower extremity. 3. Subcutaneous edema below the knee. *Note: Anticoagulation for SVT can be considered only if greater than or equal to 5 cm in length. ([email or web address].[email or web address]/[email or web address]/[id number])
[2025-09-17 14:38] LABS: GLUCOSE, URINE (UA) Negative (NEGATIVE); LEUKOCYTE ESTERASE ,URINE Negative (NEGATIVE); URINE, BLOOD Negative (NEGATIVE)
[2025-09-17 14:49] VITALS: BMI 29.7
[2025-09-17] MEDS ORDERED: ZOFRAN SDV IVP PRN (16:05)
--- NOTE | 2025-09-17 16:06 | PCM ---
Date of Service Date Seen by Provider: 09/17/25 Time Seen by Provider: 13:00 Admit Day/Time Admission Date: 09/17/25 Admission Time: 13:17 Reason for Admission Chief Complaint: CELLULITIS LLE,STASIS DERMATITIS Hospital Provider Hospital Provider: NATHAN GASCA PA-C, [facility] [place] Primary Care Physician Primary Care Physician: ANN VALADEZ History of Present Illness History of Present Illness: Patient is a 50-year-old male with past medical history of a left lower extremity wound and venous stasis dermatitis who presents to the ER from the PCP office for acute cellulitis. Patient was just admitted in mid July with similar issues. He has seen vascular in June in regards to this. He has unfortunately been discharged from his wound care clinic due to no-show appointments. He states that for the last 5 days he has been more bedbound due to pain and swelling in his left lower extremity. He states he often just sits in his chair with his leg dangling which has caused it to worsen. He has had more increased pain, erythema, and weeping from this extremity. He also has a difficult time keeping it clean, mentions that there is a lot of cat hair around him. In the ER labs were overall unremarkable. Venous ultrasound negative for DVT. He was given IV vancomycin. Patient is high risk for failure with oral antibiotics. Will admit to [facility] for acute cellulitis. Case Discussed With Case Discussed With: Patient's case was discussed with the ER Physicians, Dr. Webber. [facility] Medical History Kidney stone N20.0 - Calculus of kidney (ICD-10) Stomach problems K31.9 - Disease of stomach and duodenum, unspecified (ICD-10) Allergies T78.40XA - Allergy, unspecified, initial encounter (ICD-10) Acid reflux K21.9 - Gastro-esophageal reflux disease without esophagitis (ICD-10) Family History Mother Allergies FATHER Heart problem MATERNAL GRANDMOTHER Cancer MATERNAL GRANDFATHER Stroke Social History Smoking and tobacco status: Current every day smoker (pt smokes cigarettes as well as marijuana) Tobacco type: cigarettes Tobacco: How many years used: 26 Quit status: considering quitting Second hand smoke exposure: Yes Alcohol intake: current Alcohol intake frequency: holidays/special occasions only Substance use type: marijuana and methamphetamine Rosmery/denominational: denominational Special rosmery needs: No Agree to transfusion: Yes Adopted: No Caregiver/support person: Yes Household members: family Housing: house Lives independently: Yes Number of children: 0 Highest education level completed: GED or equivalent Financial difficulty paying for basics: not applicable service: No Current occupational status: unemployed Current occupational exposures/hazards: No Pets and animals: Yes Leisure activites: reading History of recent travel: No Do you think of yourself as: straight/heterosexual Current gender identity: male Seatbelt use: always Helmet use: No Drives intoxicated or rides with intoxicated local company truck driver: No Water heater temperature set < 120 degrees: Yes Working smoke detector in home: No (Notified patient to get smoke detector) Fire extinguisher in home: Yes Carbon monoxide detector in home: No Firearms in home: No Allergies Allergies Allergy/AdvReac Type Severity Reaction Status Date / Time mold Allergy Mild headache, Verified 09/17/25 12:25 nasal congestion pollen extracts Allergy Mild headache, Verified 09/17/25 12:25 nasal congestion codeine AdvReac Intermediate nausea Verified 09/17/25 12:25 Current Medications Home Medications Acetaminophen (Acetaminophen 325 Mg Tablet) 650 mg PO Q4H PRN PRN Reason: Mild Pain Aripiprazole (Aripiprazole 5 Mg Tablet) 10 mg PO DAILY [facility] Budesonide/Formoterol Fumarate (Budesonide/Formoterol Fumarate 80/4.5 Mcg Hfa.Aer.Ad) 2 puff IH BID [facility] Diclofenac Sodium (Diclofenac Sodium 75 Mg Tablet.) 75 mg PO DAILYWM2 [facility] Enoxaparin Sodium (Enoxaparin Sodium 40 Mg/0.4 Ml Syr) 40 mg SUBCUT DAILY [facility] VANCOMYCIN/WATER FOR INJ (PEG) (Vancomycin 1.5 Gram/300 Ml Premix) 1.5 gm in 300 mls @ 200 mls/hr IV Q12HR [facility] Stop: 09/20/25 20:59 Omeprazole (Omeprazole 20 Mg Capsule.) 20 mg PO DAILY PRN PRN Reason: acid reflux Ondansetron HCl (Ondansetron Hcl/Pf 4 Mg/2 Ml Sdv) 4 mg IVP Q6H PRN PRN Reason: Nausea / Vomiting aripiprazole 10 mg tablet 10 mg PO DAILY 05/14/25 [History Confirmed 09/17/25] albuterol sulfate 90 mcg/actuation aerosol inhaler 2 puff inhalation Q6-8H PRN shortness of breath or wheezing 08/08/25 [History Confirmed 09/17/25] budesonide-formoterol HFA 80 mcg-4.5 mcg/actuation aerosol inhaler (Symbicort) 2 inh inhalation BID 08/08/25 [History Confirmed 09/17/25] diclofenac sodium 75 mg tablet,delayed release 75 mg PO DAILY 08/08/25 [History Confirmed 09/17/25] loratadine 10 mg tablet (Allergy Relief (loratadine)) 10 mg PO DAILY PRN allergy symptoms 08/08/25 [History Confirmed 09/17/25] omeprazole 20 mg capsule,delayed release 20 mg PO DAILY PRN acid reflux 09/17/25 [History Confirmed 09/17/25] Opioid Naive vs. Tolerant Does Patient Take Opioids?: No Is Patient Opioid Naive?: Yes What is Opioid Naive?: *Opioid Naive implies the patient is not already taking opioids or not chronically receiving opioids on a daily basis. *PRN dosing is not "usually" associated with tolerance. *Patients are at higher risk of over-sedation and aspiration. Is Patient Opioid Tolerant?: No What is Opioid Tolerant?: *Opioid Tolerance implies less than the expected response to an opioid. *Acquired tolerance is defined by the patient taking 60mg of oral morphine daily (or equianalgesic dose of another opioid) for 1 week or more. *Often associated with chronic pain. *May take more than usual dose to achieve desired pain control. Review of Systems Constitutional: Reports Fatigue; Denies Fever Head: Reports Normocephalic and Atraumatic Cardiovascular: Denies Chest pain Respiratory: Denies Cough or Shortness of air Gastrointestinal: Denies Nausea, Vomiting or Abdominal pain Dermatologic: Reports Other (+LLE pain, drainage, swelling ) Physical examination Most Recent Vital Signs: Most Recent Vital Signs Temperature 98.4 F 09/17/25 14:33 Temperature Source Oral 09/17/25 14:33 Temperature Source Infrared 09/17/25 12:12 Pulse Rate 95 09/17/25 14:33 Respiratory Rate 18 09/17/25 14:33 Blood Pressure 126/69 09/17/25 12:12 Blood Pressure Left Arm 147/73 09/17/25 14:33 Blood Pressure Position Supine 09/17/25 14:33 O2 Sat by Pulse Oximetry 99 09/17/25 14:33 Oxygen Delivery Method Room Air 09/17/25 15:33 Height 6 ft 1 in 09/17/25 14:33 Weight 102.3 kg 09/17/25 14:33 Appearance: Positive No Apparent Distress, Alert and Oriented x3 and Other (+chronically ill ) HEENT: Positive Normocephalic and Atraumatic Neck: Positive Supple and Midline Trachea Chest/Lungs: Positive Clear to Auscultation Bilaterally; Negative Rales, Rhonci or Wheezes Heart: Positive RRR GI/: Positive Soft, Nontender, Bowel Sounds Normal and No Distention Neurological: Positive Cranial Nerves Intact, Alert, Oriented and Muscle Strength 5/5 in Upper and Lower Extremities Bilaterally Psychiatric: Positive Oriented x4, Appropriate Mood and Appropriate Affect Additional Findings: LLE - chronic skin changes consistent with venous stasis dermatitis. Patient has a large chronic ulceration of left lateral leg extending from knee down, see photo in chart. Increased erythema, weeping, and swelling from baseline noted. Labs This Visit Labs This Visit: Labs This Visit 09/17/25 09/17/25 12:22 14:24 WBC 6.05 RBC 3.77 L Hgb 12.3 L Hct 38.9 L MCV 103.2 H MCH 32.6 H MCHC 31.6 L RDW Coeff of Andrey 13.4 Plt Count 296 Immature Gran % (Auto) 0.2 Neut % (Auto) 65.9 Lymph % (Auto) 22.6 [place] % (Auto) 9.4 Eos % (Auto) 1.7 Baso % (Auto) 0.2 Neut # (Auto) 4.0 Lymph # (Auto) 1.4 [place] # (Auto) 0.6 Eos # (Auto) 0.1 Baso # (Auto) 0.0 Immature Gran # (Auto) 0.0 Sodium 134.9 Potassium 4.34 Chloride 99.3 Carbon Dioxide 28.2 Anion Gap 11.74 BUN 17.1 Creatinine 0.97 Estimated GFR (MDRD) 82.00 BUN/Creatinine Ratio 17.62 Glucose 98.9 Calcium 9.69 Total Bilirubin 0.66 AST 57.7 ALT 21.1 Alkaline Phosphatase 83.8 Total Protein 9.24 H Albumin 4.18 Globulin 5.06 Albumin/Globulin Ratio 0.82 Urine Color Yellow Urine Clarity Clear Urine pH 6.0 Ur Specific [place] 1.020 Urine Protein Negative Urine Glucose (UA) Negative Urine Ketones Negative Urine Blood Negative Urine Nitrite Negative Urine Bilirubin Negative Urine Urobilinogen 1.0 H Ur Leukocyte Esterase Negative Imaging Imaging: EXAM: LEFT LOWER EXTREMITY DEEP VENOUS ULTRASOUND WITH DOPPLER IMAGING HISTORY: Left calf swelling. TECHNIQUE: Lopez-scale ultrasound with compression maneuvers and color and spectral Doppler ultrasound at rest and with augmentation of the veins was performed. Images were obtained and stored in a permanent archive. COMPARISON: Venous study of 08/08/2025. FINDINGS: LEFT LOWER EXTREMITY: Common Femoral Vein: Normal compression. Normal flow on color Doppler images. Normal response to augmentation. Deep Femoral Vein: Normal compression. Normal flow on color Doppler images. Normal response to augmentation. Femoral Vein: Normal compression. Normal flow on color Doppler images. Normal response to augmentation. Popliteal Vein: Normal compression. Normal flow on color Doppler images. Nor mal response to augmentation. Peroneal Vein: Normal compression. Normal flow on color Doppler images. Posterior Tibial Vein: Normal compression. Normal flow on color Doppler images. Anterior Tibial Vein: Normal compression. Normal flow on color Doppler images. Greater Saphenous Vein (Superficial): Normal compression. Normal flow on color Doppler images. Other: There is subcutaneous edema below the knee. IMPRESSION: 1. No deep venous thrombosis (DVT) in the left lower extremity. 2. No superficial venous thrombosis (SVT) in the left lower extremity. 3. Subcutaneous edema below the knee. EXAM: CARSON AND WAVEFORM EVALUATION, BILATERAL HISTORY: Claudication, peripheral vascular disease TECHNIQUE: Arterial pressures were performed in the left and right brachial and left and right lower extremity regions with waveform evaluation. COMPARISON: None. FINDINGS: Right: Segmental Pressures: - Brachial: 132 systolic - Ankle (PT): 132 systolic. 0.95 ankle/brachial index. - Ankle (DP): 105 systolic. 0.76 ankle/brachial index. - Digit: 93 systolic. 0.67 toe/brachial index. Waveform Analysis: - Ankle (PT): Multiphasic - Ankle (DP): Multiphasic Left: Segmental Pressures: - Brachial: 139 systolic. - Ankle (PT): 155 systolic. 1.12 ankle/brachial index. - Ankle (DP): 157 systolic. 1.13 ankle/brachial index. - Digit: 71 systolic. 0.51 toe/brachial index. Waveform Analysis: - Ankle (PT): Multiphasic - Ankle (DP): Multiphasic IMPRESSION: Right CARSON: 0.95 normal Left CARSON: 1.13 normal Right TBI: 0.67 normal Left TBI: 0.51 mildly reduced consistent with small vessel disease COMMENT: Ankle Brachial Index (CARSON): - Normal: 1.0-1.4 - Borderline: 0.91-0.99 - Mild PAD: 0.71-0.90 - Moderate PAD: 0.51-0.70 - Severe PAD: <0.50 Toe Brachial Index (TBI): - Normal: >0.70 - Abnormal: <0.70 Electronically signed by: SONYA RODRIGUEZ D.O. Date: 08/05/2025 Time: 13:06 Review Statement Review Statement: I have independently reviewed and interpreted the labs/EKGs/imaging that were ordered by the ER provider. I have reviewed all outside records that are available currently in our EMR including imaging/notes/labs from previous visits. Plan Plan: 1. Acute cellulitis of left lower extremity - Will cover with vanc at this time. No discernable wound to culture as his entire left lateral lower ext is an ulceration but without purulent drainage. 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 Give lasix 40 mg x1. Wash daily with soap and water. 2. Venous stasis dermatitis of BLE - Patient follows with vascular surgery at [facility], last seen in June. Will need further outpatient f/u. 3. Large ulceration of left lower ext - Has been discharged from wound care due to missed apts. DVT Prophylaxis: Lovenox Time Spent: Greater than 80 minutes spent with patient, 50% of the time spent with this patient was devoted to counseling and coordination of care. [facility] Plannin minutes spent discussing advance care planning. Smoking Cessation: 3 minutes spent discussing smoking cessation. Admit to: Obs Discussed Plan of Care with Dr. Ana Younger. Medications Medication Orders: Medications Ordered Category Date Time Status Acetaminophen [Tylenol] Meds 09/17/25 16:05 Ordered 650 mg PO Q4H PRN Enoxaparin Sodium [Lovenox] Meds 09/18/25 09:00 Ordered 40 mg SUBCUT DAILY Ondansetron HCl/Pf [Zofran Sdv] Meds 09/17/25 16:05 Ordered 4 mg IVP Q6H PRN Vancomycin/Water For Inj (Peg) [Vancomycin 1.5 Gram/300 Meds 09/17/25 21:00 Active ml Premix] 1.5 gm in 300 ml IV Q12HR
[2025-09-17] MEDS ORDERED: PRILOSEC PO PRN (16:21)
[2025-09-17] MEDS: LASIX IVP ONE (17:35)
[2025-09-17] MEDS: SYMBICORT 80-4.5 MCG INHALER IH SCH (21:35)
[2025-09-17] MEDS: TYLENOL PO PRN (21:35)
[2025-09-17] MEDS: VANCOMYCIN 1.5 GRAM/300 ML PREMIX 1.5 GM/300 ML BAG IV SCH (21:38)
[2025-09-17] MEDS: NICODERM 14 MG TD SCH (21:44)
[2025-09-18 05:10] LABS: IMMATURE GRANULOCYTE # (AUTO) 0.0 (0.0-1.0); IMMATURE GRANULOCYTE % (AUTO) 0.4 % (0.0-5.0); RDW COEFFICIENT OF VARIATION 13.3 % (11.6-14.8)
[2025-09-18 05:21] LABS: CREATININE 1.17 mg/dL (0.60-1.10)
[2025-09-18] MEDS: VOLTAREN PO SCH (07:07)
[2025-09-18] MEDS: ABILIFY PO SCH (08:00)
[2025-09-18] MEDS: LOVENOX SUBCUT SCH (08:01)
--- NOTE | 2025-09-18 12:25 | PCM.PROG ---
Date/Time Seen Date Seen by Provider: 09/18/25 Time Seen by Provider: 09:15 Provider Provider: [facility]ATH[facility]CA [facility], [facility] Chief Complaint Chief Complaint: CELLULITIS LLE,STASIS DERMATITIS Subjective Subjective: Patient is improving. Cellulitis is not weeping today and has dried up on his left lateral lower leg. He states his legs feel less painful and achy today. He is agreeable to get up and move around today. Objective Appearance: Positive Well-nourished, No Apparent Distress and Alert and Oriented x3 Chest/Lungs: Positive Symmetrical With Equal Breath Sounds, Clear to Auscultation Bilaterally and Good Air Movement all 4 Lung Rodriguez Heart: Positive RRR GI/: Positive Soft, Nontender, Bowel Sounds Normal and No Distention Neurological: Positive Sensation Intact, Motor intact, Cranial Nerves Intact, Alert and Oriented Additional Findings: Bilateral stasis dermatitis. Left lower leg cellulitis, improved, no weeping. Vital Signs Vital Signs: Vital Signs: Last 24 Hours 09/17/25 14:33 09/17/25 14:33 09/17/25 14:49 Temperature 98.4 F Temperature Source Oral Pulse Rate 95 Pulse Rate [Apical] Respiratory Rate 18 Blood Pressure Blood Pressure Mean Blood Pressure Left Arm 147/73 Blood Pressure Location Blood Pressure Position Supine O2 Sat by Pulse Oximetry 99 Oxygen Delivery Method Room Air Room Air Room Air Height 6 ft 1 in Weight 102.3 kg Telemetry Type Telemetry Monitoring Irregular Telemetry Rate (Approximate) Telemetry Heart Rate EKG TN Interval EKG QRS Interval Telemetry Strip Reading 09/17/25 15:33 09/17/25 17:00 09/17/25 17:15 Temperature Temperature Source Pulse Rate Pulse Rate [Apical] Respiratory Rate Blood Pressure Blood Pressure Mean Blood Pressure Left Arm Blood Pressure Location Blood Pressure Position O2 Sat by Pulse Oximetry Oxygen Delivery Method Room Air Room Air Room Air Height Weight Telemetry Type Telemetry Monitoring Irregular Telemetry Rate (Approximate) Telemetry Heart Rate EKG TN Interval EKG QRS Interval Telemetry Strip Reading 09/17/25 18:00 09/17/25 19:00 09/17/25 19:00 Temperature 98.6 F Temperature Source Temporal Artery Scan Pulse Rate 99 Pulse Rate [Apical] Respiratory Rate 18 Blood Pressure 135/80 Blood Pressure Mean 98 Blood Pressure Left Arm Blood Pressure Location Right Arm Blood Pressure Position Sitting O2 Sat by Pulse Oximetry 99 Oxygen Delivery Method Room Air Room Air Height Weight Telemetry Type Remote Telemetry Telemetry Monitoring Continues Irregular Telemetry Rate (Approximate) 100-110 BPM Telemetry Heart Rate 102 H EKG TN Interval 0.16 EKG QRS Interval 0.07 Telemetry Strip Reading Sinus Tach 09/17/25 20:00 09/17/25 20:00 09/17/25 21:00 Temperature Temperature Source Pulse Rate Pulse Rate [Apical] Respiratory Rate Blood Pressure Blood Pressure Mean Blood Pressure Left Arm Blood Pressure Location Blood Pressure Position O2 Sat by Pulse Oximetry Oxygen Delivery Method Room Air Room Air Room Air Height Weight Telemetry Type Telemetry Monitoring Irregular Telemetry Rate (Approximate) Telemetry Heart Rate EKG TN Interval EKG QRS Interval Telemetry Strip Reading 09/17/25 21:49 09/17/25 22:00 09/17/25 23:00 Temperature 97.1 F L Temperature Source Temporal Artery Scan Pulse Rate 96 Pulse Rate [Apical] Respiratory Rate 20 Blood Pressure 129/70 Blood Pressure Mean 89 Blood Pressure Left Arm Blood Pressure Location Left Arm Blood Pressure Position Supine O2 Sat by Pulse Oximetry 100 Oxygen Delivery Method Room Air Room Air Room Air Height Weight Telemetry Type Telemetry Monitoring Irregular Telemetry Rate (Approximate) Telemetry Heart Rate EKG TN Interval EKG QRS Interval Telemetry Strip Reading 09/18/25 00:00 09/18/25 01:00 09/18/25 01:00 Temperature Temperature Source Pulse Rate Pulse Rate [Apical] Respiratory Rate Blood Pressure Blood Pressure Mean Blood Pressure Left Arm Blood Pressure Location Blood Pressure Position O2 Sat by Pulse Oximetry Oxygen Delivery Method Room Air Room Air Height Weight Telemetry Type Remote Telemetry Telemetry Monitoring Continues Irregular Telemetry Rate (Approximate) Telemetry Heart Rate 107 H EKG TN Interval 0.18 EKG QRS Interval 0.[address] 09/18/25 02:00 09/18/25 02:00 09/18/25 03:00 Temperature 97.4 F L Temperature Source Tympanic Pulse Rate 89 Pulse Rate [Apical] Respiratory Rate 18 Blood Pressure 115/67 Blood Pressure Mean 83 Blood Pressure Left Arm Blood Pressure Location Right Arm Blood Pressure Position Supine O2 Sat by Pulse Oximetry 97 Oxygen Delivery Method Room Air Nasal Cannula Nasal Cannula Height Weight Telemetry Type Telemetry Monitoring Irregular Telemetry Rate (Approximate) Telemetry Heart Rate EKG TN Interval EKG QRS Interval Telemetry Strip Reading 09/18/25 04:00 09/18/25 04:53 09/18/25 05:38 Temperature 97.8 F Temperature Source Tympanic Pulse Rate 95 Pulse Rate [Apical] Respiratory Rate 18 Blood Pressure 120/57 L Blood Pressure Mean 78 Blood Pressure Left Arm Blood Pressure Location Left Arm Blood Pressure Position Supine O2 Sat by Pulse Oximetry 97 Oxygen Delivery Method Nasal Cannula Nasal Cannula Room Air Height Weight Telemetry Type Telemetry Monitoring Irregular Telemetry Rate (Approximate) Telemetry Heart Rate EKG TN Interval EKG QRS Interval Telemetry Strip Reading 09/18/25 05:57 09/18/25 07:00 09/18/25 07:00 Temperature Temperature Source Pulse Rate Pulse Rate [Apical] Respiratory Rate Blood Pressure Blood Pressure Mean Blood Pressure Left Arm Blood Pressure Location Blood Pressure Position O2 Sat by Pulse Oximetry Oxygen Delivery Method Room Air Room Air Height Weight Telemetry Type Remote Telemetry Telemetry Monitoring Continues Irregular Telemetry Rate (Approximate) Telemetry Heart Rate 85 EKG TN Interval 0.17 EKG QRS Interval 0.10 Telemetry Strip Reading NSR 09/18/25 07:09 09/18/25 08:00 09/18/25 09:00 Temperature Temperature Source Pulse Rate Pulse Rate [Apical] 80 Respiratory Rate 16 Blood Pressure Blood Pressure Mean Blood Pressure Left Arm Blood Pressure Location Blood Pressure Position O2 Sat by Pulse Oximetry Oxygen Delivery Method Room Air Room Air Room Air Height Weight Telemetry Type Telemetry Monitoring Irregular Telemetry Rate (Approximate) Telemetry Heart Rate EKG TN Interval EKG QRS Interval Telemetry Strip Reading 09/18/25 10:00 09/18/25 10:00 09/18/25 11:00 Temperature 97.4 F L Temperature Source Temporal Artery Scan Pulse Rate 83 Pulse Rate [Apical] Respiratory Rate 16 Blood Pressure 108/76 Blood Pressure Mean 86 Blood Pressure Left Arm Blood Pressure Location Right Arm Blood Pressure Position O2 Sat by Pulse Oximetry 97 Oxygen Delivery Method Room Air Room Air Room Air Height Weight Telemetry Type Telemetry Monitoring Irregular Telemetry Rate (Approximate) Telemetry Heart Rate EKG TN Interval EKG QRS Interval Telemetry Strip Reading Lab Results Lab Results: Lab Results: Last 24 Hours 09/18/25 09/17/25 09/17/25 04:56 14:24 12:22 WBC 5.01 6.05 RBC 3.40 L 3.77 L Hgb 10.9 L 12.3 L Hct 34.5 L 38.9 L MCV 101.5 H 103.2 H MCH 32.1 H 32.6 H MCHC 31.6 L 31.6 L RDW Coeff of Andrey 13.3 13.4 Plt Count 256 296 Immature Gran % (Auto) 0.4 0.2 Neut % (Auto) 50.3 65.9 Lymph % (Auto) 31.5 22.6 Coke % (Auto) 14.2 H 9.4 Eos % (Auto) 3.2 1.7 Baso % (Auto) 0.4 0.2 Neut # (Auto) 2.5 4.0 Lymph # (Auto) 1.6 1.4 Coke # (Auto) 0.7 0.6 Eos # (Auto) 0.2 0.1 Baso # (Auto) 0.0 0.0 Immature Gran # (Auto) 0.0 0.0 Sodium 134.7 134.9 Potassium 4.08 4.34 Chloride 101.5 99.3 Carbon Dioxide 28.2 28.2 Anion Gap 9.08 11.74 BUN 15.8 17.1 Creatinine 1.17 H 0.97 Estimated GFR (MDRD) 66.00 82.00 BUN/Creatinine Ratio 13.50 17.62 Glucose 111.5 H 98.9 Calcium 9.10 9.69 Total Bilirubin 0.59 0.66 AST 77.9 H 57.7 ALT 17.1 21.1 Alkaline Phosphatase 73.4 83.8 Total Protein 7.88 9.24 H Albumin 3.58 4.18 Globulin 4.30 5.06 Albumin/Globulin Ratio 0.83 0.82 Urine Color Yellow Urine Clarity Clear Urine pH 6.0 Ur Specific [place] 1.020 Urine Protein Negative Urine Glucose (UA) Negative Urine Ketones Negative Urine Blood Negative Urine Nitrite Negative Urine Bilirubin Negative Urine Urobilinogen 1.0 H Ur Leukocyte Esterase Negative Additional Comments Additional Comments: Imaging: EXAM: LEFT LOWER EXTREMITY DEEP VENOUS ULTRASOUND WITH DOPPLER IMAGING HISTORY: Left calf swelling. TECHNIQUE: Lopez-scale ultrasound with compression maneuvers and color and spectral Doppler ultrasound at rest and with augmentation of the veins was performed. Images were obtained and stored in a permanent archive. COMPARISON: Venous study of 08/08/2025. FINDINGS: LEFT LOWER EXTREMITY: Common Femoral Vein: Normal compression. Normal flow on color Doppler images. Normal response to augmentation. Deep Femoral Vein: Normal compression. Normal flow on color Doppler images. Normal response to augmentation. Femoral Vein: Normal compression. Normal flow on color Doppler images. Normal response to augmentation. Popliteal Vein: Normal compression. Normal flow on color Doppler images. Normal response to augmentation. Peroneal Vein: Normal compression. Normal flow on color Doppler images. Posterior Tibial Vein: Normal compression. Normal flow on color Doppler images. Anterior Tibial Vein: Normal compression. Normal flow on color Doppler images. Greater Saphenous Vein (Superficial): Normal compression. Normal flow on color Doppler images. Other: There is subcutaneous edema below the knee. IMPRESSION: 1. No deep venous thrombosis (DVT) in the left lower extremity. 2. No superficial venous thrombosis (SVT) in the left lower extremity. 3. Subcutaneous edema below the knee. I have independently reviewed and interpreted the labs/EKGs/imaging ordered during this hospital stay. I have reviewed outside records that are available in our EMR that pertain to medical stay including imaging/notes/labs from previous visits. Active Medications Active Medications: Medications Generic Name Dose Route Start Last Admin Trade Name Freq PRN Reason Stop Dose Admin Acetaminophen 650 mg 09/17/25 16:05 09/17/25 21:35 Acetaminophen 325 Mg Tablet PO 650 mg Q4H PRN Administration Mild Pain Aripiprazole 10 mg 09/18/25 09:00 09/18/25 08:00 Aripiprazole 5 Mg Tablet PO 10 mg DAILY MIRYAM Administration Budesonide/Formoterol Fumarate 2 puff 09/17/25 21:00 09/18/25 08:00 Budesonide/Formoterol Fumarate 80/4.5 Mcg Hfa.Aer.Ad IH 2 puff BID MIRYAM Administration Diclofenac Sodium 75 mg 09/18/25 07:30 09/18/25 07:07 Diclofenac Sodium 75 Mg Tablet.Dr PO 75 mg DAILYWM2 MIRYAM Administration Enoxaparin Sodium 40 mg 09/18/25 09:00 09/18/25 08:01 Enoxaparin Sodium 40 Mg/0.4 Ml Syr SUBCUT 40 mg DAILY MIRYAM Administration VANCOMYCIN/WATER FOR INJ (PEG) 1.5 gm in 300 mls @ 200 mls/hr 09/17/25 21:00 09/18/25 08:44 Vancomycin 1.5 Gram/300 Ml Premix IV 09/20/25 20:59 200 mls/hr Q12HR MIRYAM Administration Nicotine 1 patch 09/18/25 21:00 Nicotine 14 Mg Patch.Td24 TD BEDTIME MIRYAM Omeprazole 20 mg 09/17/25 16:21 Omeprazole 20 Mg Capsule. PO DAILY PRN acid reflux Ondansetron HCl 4 mg 09/17/25 16:05 Ondansetron Hcl/Pf 4 Mg/2 Ml Sdv IVP Q6H PRN Nausea / Vomiting Plan Plan: 1. Acute cellulitis of left lower extremity - Improving. Continue vanc. No discernable wound to culture. 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 Wash daily with soap and water. 2. Venous stasis dermatitis of BLE - Patient follows with vascular surgery at [facility], last seen in June. Will need further outpatient f/u. 3. Large ulceration of left lower ext - Has been discharged from wound care due to missed apts. DVT Prophylaxis: Lovenox Review Statement Review Statement: I have personally discussed and reviewed the patient's visit/currently labs/imaging/decision making with Dr. Younger, my supervising attending. Greater that 50 minutes spent with patient, 50% of the time spent with this patient was devoted to counseling and coordination of care.
[2025-09-18] MEDS: NICODERM 14 MG TD SCH (21:39)
[2025-09-19 05:16] LABS: IMMATURE GRANULOCYTE # (AUTO) 0.0 (0.0-1.0); IMMATURE GRANULOCYTE % (AUTO) 0.2 % (0.0-5.0); RDW COEFFICIENT OF VARIATION 13.3 % (11.6-14.8)
[2025-09-19 05:29] LABS: CREATININE 0.94 mg/dL (0.60-1.10)
--- NOTE | 2025-09-19 08:48 | DCSUM ---
Admission Date Admission Date: 09/17/25 Discharge Date Discharge Date: 09/19/25 Admission Diagnosis Admission Diagnosis: 1. Acute cellulitis of left lower extremity Discharge Diagnosis Discharge Diagnosis: 1. Acute cellulitis of left lower extremity - Improving. 2. Venous stasis dermatitis of BLE 3. Large ulceration of left lower ext, chronic Hospital Provider Hospital Provider: NATHAN GASCA PA-C, [facility] Primary Care Physician Primary Care Physician: ANN VALADEZ Summary of History and Physical Summary of History and Physical: Patient is a 50-year-old male with past medical history of a left lower extremity wound and venous stasis dermatitis who presents to the ER from the PCP office for acute cellulitis. Patient was just admitted in mid July with similar issues. He has seen vascular in June in regards to this. He has unfortunately been discharged from his wound care clinic due to no-show a ppointments. He states that for the last 5 days he has been more bedbound due to pain and swelling in his left lower extremity. He states he often just sits in his chair with his leg dangling which has caused it to worsen. He has had more increased pain, erythema, and weeping from this extremity. He also has a difficult time keeping it clean, mentions that there is a lot of cat hair around him. In the ER labs were overall unremarkable. Venous ultrasound negative for DVT. He was given IV vancomycin. Patient is high risk for failure with oral antibiotics. Will admit to [facility] for acute cellulitis. Hospital Course Subjective: Patient was treated with vancomycin. His LLE overall looks much better. Swelling significantly better. No longer weeping. Erythema has mostly resolved except for his chronic discoloration. He has been ambulatory without difficulty. His wound care clinic here in [place] has discharged him due to missed apt. We did make a f/u with PCP and his vascular specialist. Encouraged him to keep pressure off that left lateral leg, as he likes to lay with it externally rotated. Also encouraged good hygiene and keeping area clean and dry. Patient agrees to plan of care. Will discharge on bactrim ds bid x5 more days. Push fluids while taking it. Appearance: No Apparent Distress and Alert HEENT: MMM CVS: Other (RRR) Abdomen: Soft, Non-Tender and No Distention Respiratory: No Accessory Muscle Use Additional Findings: Bilateral venous stasis dermatitis. Left lower leg cellulitis, much improved, no weeping, swelling improved. Vital Signs: Most Recent Vital Signs Temperature 97.2 F L 09/19/25 05:55 Temperature Source Tympanic 09/19/25 05:55 Temperature Source Infrared 09/17/25 12:12 Pulse Rate 81 09/19/25 05:55 Respiratory Rate 14 09/19/25 05:55 Blood Pressure 136/77 09/19/25 05:55 Blood Pressure Mean 96 09/19/25 05:55 Blood Pressure Left Arm 147/73 09/17/25 14:33 Blood Pressure Location Left Arm 09/19/25 05:55 Blood Pressure Position Supine 09/19/25 05:55 O2 Sat by Pulse Oximetry 98 09/19/25 05:55 Oxygen Delivery Method Room Air 09/19/25 08:00 Height 6 ft 1 in 09/17/25 14:33 Weight 102.3 kg 09/17/25 14:33 Telemetry Type Remote Telemetry 09/19/25 01:00 Telemetry Monitoring Continues 09/19/25 01:00 Irregular Telemetry Rate (Approximate) 100-110 BPM 09/17/25 19:00 Telemetry Heart Rate 93 09/19/25 01:00 EKG TX Interval 0.15 09/19/25 01:00 EKG QRS Interval 0.05 L 09/19/25 01:00 Telemetry Strip Reading sr 09/19/25 01:00 Imaging: EXAM: LEFT LOWER EXTREMITY DEEP VENOUS ULTRASOUND WITH DOPPLER IMAGING HISTORY: Left calf swelling. TECHNIQUE: Lopez-scale ultrasound with compression maneuvers and color and spectral Doppler ultrasound at rest and with augmentation of the veins was performed. Images were obtained and stored in a permanent archive. COMPARISON: Venous study of 08/08/2025. FINDINGS: LEFT LOWER EXTREMITY: Common Femoral Vein: Normal compression. Normal flow on color Doppler images. Normal response to augmentation. Deep Femoral Vein: Normal compression. Normal flow on color Doppler images. Normal response to augmentation. Femoral Vein: Normal compression. Normal flow on color Doppler images. Normal response to augmentation. Popliteal Vein: Normal compression. Normal flow on color Doppler images. Normal response to augmentation. Peroneal Vein: Normal compression. Normal flow on color Doppler images. Posterior Tibial Vein: Normal compression. Normal flow on color Doppler images. Anterior Tibial Vein: Normal compression. Normal flow on color Doppler images. Greater Saphenous Vein (Superficial): Normal compression. Normal flow on color Doppler images. Other: There is subcutaneous edema below the knee. IMPRESSION: 1. No deep venous thrombosis (DVT) in the left lower extremity. 2. No superficial venous thrombosis (SVT) in the left lower extremity. 3. Subcutaneous edema below the knee. Lab Results Last 24 Hours: 09/19/25 05:04 WBC 6.11 RBC 3.30 L Hgb 10.7 L Hct 33.9 L MCV 102.7 H MCH 32.4 H MCHC 31.6 L RDW Coeff of Andrey 13.3 Plt Count 237 Immature Gran % (Auto) 0.2 Neut % (Auto) 59.2 Lymph % (Auto) 27.0 [place] % (Auto) 9.0 Eos % (Auto) 4.3 Baso % (Auto) 0.3 Neut # (Auto) 3.6 Lymph # (Auto) 1.7 [place] # (Auto) 0.6 Eos # (Auto) 0.3 Baso # (Auto) 0.0 Immature Gran # (Auto) 0.0 Sodium 136.6 Potassium 4.05 Chloride 105.3 Carbon Dioxide 27.2 Anion Gap 8.15 BUN 11.3 Creatinine 0.94 Estimated GFR (MDRD) 85.00 BUN/Creatinine Ratio 12.02 Glucose 106.7 H Calcium 9.06 Total Bilirubin 0.35 AST 63.7 H ALT 15.0 Alkaline Phosphatase 74.0 Total Protein 7.70 Albumin 3.49 L Globulin 4.21 Albumin/Globulin Ratio 0.82 Discharge Instructions Discharge Planning: Discharge Planning > [address] Ana Younger. Discharge Medications: Medications at Discharge (Home Meds & RX) aripiprazole 10 mg tablet 10 mg PO DAILY 05/14/25 albuterol sulfate 90 mcg/actuation aerosol inhaler 2 puff inhalation Q6-8H PRN shortness of breath or wheezing 08/08/25 budesonide-formoterol HFA 80 mcg-4.5 mcg/actuation aerosol inhaler (Symbicort) 2 inh inhalation BID 08/08/25 diclofenac sodium 75 mg tablet,delayed release 75 mg PO DAILY 08/08/25 loratadine 10 mg tablet (Allergy Relief (loratadine)) 10 mg PO DAILY PRN allergy symptoms 08/08/25 omeprazole 20 mg capsule,delayed release 20 mg PO DAILY PRN acid reflux 09/17/25 sulfamethoxazole 800 mg-trimethoprim 160 mg tablet (Bactrim DS) 1 tab PO BID 5 days #10 tabs 09/19/25 Discharge Plan Discharge Discharge Orders: Discharge Patient (ONCE); Ordered 09/19/25 Ordered By: NATHAN GASCA Activity Restrictions/Additional Instructions: DISCHARGE TO HOME DX: CELLULITIS PHARMACY: [facility], PUSH FLUIDS WHILE TAKING IT F/U WITH PCP AND VASCULAR SCHEDULED KEEP PRESSURE OFF LEFT SIDE OF LEFT LEG KEEP AREA CLEAN AND DRY, WASH WITH WARM SOAPY WATER ONCE DAILY Instructions: Sulfamethoxazole/Trimethoprim (By mouth), Cellulitis (GEN), Stasis Dermatitis (DC) Patient Disposition: HOME SELF-CARE Prescriptions: New sulfamethoxazole-trimethoprim [Bactrim DS] 800-160 mg tablet 1 tab PO BID 5 Days Qty: 10 0RF Continued omeprazole 20 mg capsule,delayed release(DR/EC) 20 mg PO DAILY PRN (Reason: acid reflux) aripiprazole 10 mg tablet 10 mg PO DAILY diclofenac sodium 75 mg tablet,delayed release (DR/EC) 75 mg PO DAILY loratadine [Allergy Relief (loratadine)] 10 mg tablet 10 mg PO DAILY PRN (Reason: allergy symptoms) albuterol sulfate 90 mcg/actuation HFA aerosol inhaler 2 puff inhalation Q6-8H PRN (Reason: shortness of breath or wheezing) budesonide-formoterol [Symbicort] 80-4.5 mcg/actuation HFA aerosol inhaler 2 inh inhalation BID Did you review [place] [employer] for ALL controlled substances?: Not Applicable Discussed opioids are addictive and Narcan is available by prescription or from pharmacy.: No Condition: Stable Referrals: ANN VALADEZ [Primary Care Provider, [employer]] - 09/27/25 10:15 am AISSATOU HAQ MD [REFERRING, Vascular Surgery] - 10/07/25 2:15 pm
[2025-09-19 11:39] VITALS: BP 146/74; TEMP 98.2
[2025-09-19 13:15] VITALS: PULSE 92; RESP 16
== END 2025-09-19 14:00 | disposition home or self-care (01) ==
LOC: MEDSURG B 12:10 → ED 12:10 → MEDSURG B 14:18
PROVIDERS: ADMIT Hospitalist; ATTEND Physician Assistant